=== PATIENT | female | born 1945 | race Caucasian/White ===

== ENCOUNTER 2023-11-04 01:37 | Emergency (ER) | payer MEDICARE, OTHER, SELFPAY ==
[2023-11-04 01:40] VITALS: BP 186/114
[2023-11-04 02:04] VITALS: BMI 39.1
--- NOTE | 2023-11-04 02:15 | ED.GENMED ---
History of Present Illness
<JOVAN Hollingsworth - Last Filed: 11/04/23 03:32>
General
Chief Complaint: Head Injury
Source: patient
Exam Limitations: none
Time Seen by Provider: 11/04/23 01:48
Nursing documentation reviewed up to this point in time: agreed with
Travel History
Have you had any contact with someone who has COVID-19?: No
Do you have any symptoms of coronavirus? Fever > 100 degrees, chills, cough, shortness of breath, sore throat, loss of taste or smell, muscle aches, or headache?: No
History of Present Illness
History of Present Illness:
This is a 78 year old female, with a PMH of Afib on eliquis, HTN, and GERD, who presents to the ED after a fall 45 mins ago. Pt states she was sleeping when she rolled off her bed and hit the back of her head on her side table. She denies any LOC.
She states she cut the back of her head and it has been bleeding. She has been applying pressure to it. She denies any GUERRERO, CP, SOB, nausea, vomiting, vision changes, abdominal pain, neck pain or palpitations.
Past History
<JOVAN Hollingsworth - Last Filed: 11/04/23 03:32>
Past History
ED Past Medical History: Arrthythmia (Paroxysmal atrial fibrillation with rapid ventricular response March 2021), Cancer (Uterine CA), HTN and Hypercholesterolemia
ED Past Surgical History: Gynecological (total Hysterectomy) and Other (barrets esophagus with surgery)
Social History
Tobacco: Former smoker
Alcohol: Occasional
Drug: None
Personal:
Living: with family
Review of Systems
<JOVAN Hollingsworth - Last Filed: 11/04/23 03:32>
Review of Systems
Allergies reviewed?: Yes
All Other Systems: ROS reviewed and negative except as documented in HPI and ROS
Constitutional: Reports no symptoms
EENT: Reports no symptoms
Respiratory: Reports no symptoms; Denies trouble breathing
Cardiac: Reports no symptoms; Denies chest pain or palpitations
ABD/GI: Reports no symptoms; Denies nausea or vomiting
: Reports no symptoms
Musculoskeletal: Reports no symptoms
Skin: Reports other (laceration on back of head)
Neurological: Reports no symptoms; Denies headache
Psychiatric: Reports no symptoms
Phy Exam
<JOVAN Hollingsworth - Last Filed: 11/04/23 03:32>
General Physical Exam
General Presentation: no apparent distress
General age: appears stated age
General Skin: warm and dry
General Habitus: normal
General Mental: alert
General Hydration: appears well hydrated
ENT Exam
ENT Exam: EOMI, neck supple, normocephalic and swallowing well
Cardiovascular Exam
Cardiovascular Exam: normal peripheral pulses and irregularly irregular
Pulmonary Exam
Pulmonary Exam: lungs clear, no respiratory distress, no rales, no crackles, no rhonchi, no wheezing and no cough
Gastrointestinal Exam
Gastrointestinal Exam: normal bowel sounds, non tender, soft and non distended
Neurological Exam
Neurological Exam: alert, oriented x3, no motor deficits and speech normal
Musculoskeletal Exam
Musculoskeletal Exam: full ROM, no edema and other (1.5 cm laceration along posterior scalp. No bony tenderness along head or cervical spine. Normal ROM. bleeding from laceration has stopped.)
Skin Exam
Skin Exam: normal color and warm/dry
Psychiatric Exam
Psychiatric Exam: normal mood/affect
Course
<ST EdelAK - Last Filed: 11/04/23 03:32>
Orders/Labs/Results
Orders:
Orders
11/04/23 01:44
Electrocardiogram (*1) Urgent
Reason for Study: Tachycardia
EKG- Treatment ONCE
11/04/23 01:51
CT Head W/o Iv Contrast Urgent
Comment:
Reason For Exam: fall, Posterior head strike on eliquis
11/04/23 03:14
Tetanus/Diphth/Acelpertussis [Adacel] 0.5 ml IM .ONCE ONE
Vital Signs
Initial and Last Documented VS:
Initial Vital Signs
Temp Pulse Resp BP Pulse Ox
98.1 F 154 24 186/114 97
11/04/23 01:40 11/04/23 01:40 11/04/23 01:40 11/04/23 01:40 11/04/23 01:40
Last Documented Vital Signs
Temp Pulse Resp BP Pulse Ox
98.1 F 88 20 186/114 96
11/04/23 01:40 11/04/23 03:00 11/04/23 03:00 11/04/23 01:40 11/04/23 03:00
<Rj Mari, - Last Filed: 11/04/23 03:16>
Orders/Labs/Results
Orders:
Orders
11/04/23 01:44
Electrocardiogram (*1) Urgent
Reason for Study: Tachycardia
EKG- Treatment ONCE
11/04/23 01:51
CT Head W/o Iv Contrast Urgent
Comment:
Reason For Exam: fall, Posterior head strike on eliquis
11/04/23 03:14
Tetanus/Diphth/Acelpertussis [Adacel] 0.5 ml IM .ONCE ONE
Vital Signs
Initial and Last Documented VS:
Initial Vital Signs
Temp Pulse Resp BP Pulse Ox
98.1 F 154 24 186/114 97
11/04/23 01:40 11/04/23 01:40 11/04/23 01:40 11/04/23 01:40 11/04/23 01:40
Last Documented Vital Signs
Temp Pulse Resp BP Pulse Ox
98.1 F 88 20 186/114 96
11/04/23 01:40 11/04/23 03:00 11/04/23 03:00 11/04/23 01:40 11/04/23 03:00
<DO Amber Lara Last Filed: 11/04/23 03:16>
Laceration Closure
Posterior Scalp:
Size of Wound in cm: 1.5
Description of Wound Edges: sharp and flap-well vascularized
Preparation: cleaned with saline
Revision/Debridement: routine- no revision
Wound exploration: explored to base- no FB
Type of Closure: single layer closure
Skin Closure Material: skin christina
Number of sutures: 5
<JOVAN Hollingsworth - Last Filed: 11/04/23 03:32>
*Critical Care Note
Total Time (30-74mins, 75-104mins- exclusive of procedures): Not Applicable
<DO Amber Lara Last Filed: 11/04/23 03:16>
Update Note
Update Note:
NONCONTRAST HEAD CT
IMPRESSION
No evidence of acute intracranial abnormality. No evidence of hemorrhage or mass.
Minor periventricular and subcortical regions of low attenuation likely representing chronic small vessel ischemic disease.
Ventricles and sulci are unremarkable.
Bones are unremarkable. Sinuses are unremarkable.
ED Attending Note
<JOVAN Hollingsworth - Last Filed: 11/04/23 03:32>
-
Portions of this chart may have been created with voice recognition software.� Occasional wrong word or��sound alike� substitutions may have occurred due to the inherent limitations of voice recognition software.
<DO Amber Lara Last Filed: 11/04/23 03:16>
ED Attending Note
Patient seen and examined by attending physician: Yes
I performed the substantive portion of visit, reviewed & personally made and approve the management plan that is documented in note by myself or NEGRITA.: Yes
ED Attending Note:
Pleasant 78-year-old female presents with head injury. She tripped and hit her dresser. Denies loss of consciousness. She did suffer a small laceration to the back of her head. Denies any other injuries at this time. Accompanied by her .
Patient was seen in conjunction with the PA student. I have reviewed and agree with the history and treatment plan presented. On my independent physical exam, patient is awake, alert, and oriented x3, no acute distress. There is a small 1-1/2 cm
long linear laceration to the posterior scalp for which we put 5 christina. Wound closed nicely without any bleeding. Patient tolerated procedure well without any immediate adverse effects. Christina to be removed in 10 days. Patient to get tetanus
updated. CT scan of the head is negative. Patient in no distress. Discussed return to ER instructions with patient and . They expressed understanding and have no questions at this time.
Discharge Plan
Departure
Patient Disposition: Home (Routine Discharge)
Date of Disposition: 11/04/23
Time of Disposition: 03:15
Patient with high blood pressure during this ER visit?: Yes
Condition: Good
Discharge Problem:
Laceration of scalp
Instructions: Laceration Repair With [place] (DC), Minor Head Injury (DC), BLOOD PRESSURE
Prescriptions:
No Action
sertraline 50 MG tablet
50 mg PO DAILY
omeprazole 40 MG capsule,delayed release(DR/EC)
40 mg PO DAILY
amlodipine 10 MG tablet
10 mg PO DAILY
metoprolol tartrate 50 MG tablet
50 mg PO BID Qty: 60 0RF
apixaban [Eliquis] 5 MG tablet
5 mg PO BID Qty: 60 0RF
lisinopril 20 MG tablet
20 mg PO DAILY Qty: 30 0RF
pravastatin 20 MG tablet
20 mg PO DAILY Qty: 0 0RF
Referrals:
Anupam Montenegro MD [Family Provider] -
Activity Restrictions/Additional Instructions:
It was a pleasure meeting you and taking part in your care. We hope for your continued healing and wellness.
Please read discharge instructions in their entirety. However, they are for general education and may not describe your exact diagnosis at discharge. Information on your ER visit and medical conditions were discussed with you along with appropriate
follow up information...
If indicated, please take your medications as instructed and indicated on discharge paperwork.
Please schedule a follow up appointment as directed. Call to schedule an appointment
Please return to the emergency department with ANY change in, persisting, or worsening of symptoms. If any of your symptoms do not improve, or persist, or become more severe within 6-12 hours, please return to the emergency department for further
care.
Please return to the emergency department if you develop a headache, neck pain/stiffness, fever greater than 100.4F, chest pain, shortness of breath, persistent nausea, vomiting, slurred speech, difficulty walking, numbness/tingling, weakness, signs
of infection or any other symptoms that are worrisome to you.
If you have any questions or concerns please do not hesitate to call the Hospital at
Interventions
Interventions:
*Risk Screen - Suicide Last Done: 11/04/23 01:40
*General Assessment Last Done: 11/04/23 01:59
*Neglect/Abuse Screening Last Done: 11/04/23 01:40
*Nursing Disposition Last Done: 11/04/23 03:21
ED- Neurological Assessment Last Done: 11/04/23 02:05
ED-Skin Assessment Last Done: 11/04/23 02:07
Discharge Date and Time
Discharge Date/Time: 11/04/23 03:23
[2023-11-04] MEDS: ADACEL 0.5 ML IM (03:16)
== END 2023-11-04 03:23 | disposition home or self-care (01) ==
LOC: EMR 01:37
PROVIDERS: EMERGENCY PHYSICIAN Student in an Organized Health Care Education/Training Program; FAMILY PHYSICIAN Family Medicine
DX: S01.01XA Laceration without foreign body of scalp, initial encounter (principal); W06.XXXA Fall from bed, initial encounter; I10 Essential (primary) hypertension; Z79.01 Long term (current) use of anticoagulants; Z23 Encounter for immunization; Z87.891 Personal history of nicotine dependence
CPT/HCPCS: 99284; 12001; 90471; 70450; 90715; 93005

== ENCOUNTER 2024-01-03 18:56 | Emergency (ER) | payer MEDICARE, OTHER, SELFPAY ==
[2024-01-03 19:06] VITALS: BP 155/106
[2024-01-03 19:42] VITALS: BMI 40.9
[2024-01-03] MEDS: NORCO 5/325 1 TABLET PO (21:51)
--- NOTE | 2024-01-03 23:57 | ED.MUSCINJ ---
HPI-Injury
General
Chief Complaint: Musculo-Skeletal Complaint
Source: patient
Exam Limitations: none
Time Seen by Provider: 01/03/24 21:24
Nursing documentation reviewed up to this point in time: agreed with
Travel History
Have you had any contact with someone who has COVID-19?: No
Do you have any symptoms of coronavirus? Fever > 100 degrees, chills, cough, shortness of breath, sore throat, loss of taste or smell, muscle aches, or headache?: No
History of Present Illness-Injury
Is this injury a work related problem?: No
Is pt an associate of [facility]?: No
Initial Injury comments:
Patient to ED with complaint of pain to base of right thumb. Symptoms started a few days ago. States she thinks she got finger caught in mattress while sleeping. Brought to ED by spouse for eval.
Past History
Past History
ED Past Medical History: Arrthythmia (Paroxysmal atrial fibrillation with rapid ventricular response March 2021), Cancer (Uterine CA), HTN and Hypercholesterolemia
ED Past Surgical History: Gynecological (total Hysterectomy) and Other (barrets esophagus with surgery)
Social History
Tobacco: Former smoker
Alcohol: Occasional
Drug: None
Personal:
Living: with family
Review of Systems
Review of Systems
Allergies reviewed?: Yes
All Other Systems: ROS reviewed and negative except as documented in HPI and ROS
Constitutional: Reports no symptoms
Musculoskeletal: Reports joint pain (pain to base of right thumb)
Skin: Reports no symptoms
Neurological: Reports no symptoms
Psychiatric: Reports no symptoms
Musculoskeletal Injury Exam
Musculoskeletal Injury Exam
Right Thumb:
Pain with Movement?: Moderate
Tender to palpation?: Moderate
Soft tissue swelling?: None
External deformity and angulation?: None
Joint effusion?: None
Contusion?: None
Hematoma-local bleeding into tissue?: None
Strain- Sprain- Tear (Connective tissue injury)?: Moderate
Crepitus with movement?: No
Joint instability?: No
Malalignment/deformity?: No
Range of motion: Limited
Distal skin color and temperature: normal-warm & good color
Capillary Refill: normal
Normal distal neurovascular exam?: Yes
Phy Exam
General Physical Exam
General Presentation: well appearing and no apparent distress
General age: appears stated age
General Skin: warm and dry
General Habitus: normal
General Mental: alert
Musculoskeletal Exam
Musculoskeletal Exam: neuro vasc intact
Skin Exam
Skin Exam: normal color, warm/dry and no rash
Psychiatric Exam
Psychiatric Exam: normal mood/affect
Injury Course
Orders/Labs/Results
Orders:
Orders
01/03/24 19:06
Wrist, Right 3 Views [CR Wrist - Right Min 3 Views] Urgent
Comment:
Reason For Exam: WOKE UP WITH PAIN
01/03/24 21:28
Hydrocodone 5/APAP 325 [[place] 5/325] 1 tablet PO NOW STA
*Radiology
Radiology exam reviewed: radiology read reviewed
*Pulse Oximetry
Patient hypoxic: no
*Critical Care Note
Total Time (30-74mins, 75-104mins- exclusive of procedures): Not Applicable
ED Attending Note
-
Portions of this chart may have been created with voice recognition software.� Occasional wrong word or��sound alike� substitutions may have occurred due to the inherent limitations of voice recognition software.
Discharge Plan
Departure
Patient Disposition: Home (Routine Discharge)
Date of Disposition: 01/03/24
Time of Disposition: 21:28
Patient with high blood pressure during this ER visit?: No
Condition: Good
Covid-19: Not Applicable
Discharge Problem:
Thumb pain
Instructions: Using Cold for Pain, Splint Care
Prescriptions:
New
hydrocodone-acetaminophen 5-325 mg tablet
1 tab PO Q4H PRN (Reason: Pain) Qty: 12 0RF
No Action
sertraline 50 MG tablet
50 mg PO DAILY
omeprazole 40 MG capsule,delayed release(DR/EC)
40 mg PO DAILY
amlodipine 10 MG tablet
10 mg PO DAILY
metoprolol tartrate 50 MG tablet
50 mg PO BID Qty: 60 0RF
apixaban [Eliquis] 5 MG tablet
5 mg PO BID Qty: 60 0RF
lisinopril 20 MG tablet
20 mg PO DAILY Qty: 30 0RF
pravastatin 20 MG tablet
20 mg PO DAILY Qty: 0 0RF
Referrals:
Anupam Montenegro MD [Family Provider] -
Ivan Goel MD [Active] - (Follow up if your symptoms are not improving over the next week.)
Interventions
Interventions:
*Risk Screen - Suicide Last Done: 01/03/24 19:03
*General Assessment Last Done: 01/03/24 19:41
*Neglect/Abuse Screening Last Done: 01/03/24 19:03
ED- Fall Risk Assessment Last Done: 01/03/24 19:39
*ED COVID-19 Vaccine History Last Done: 01/03/24 19:41
*Nursing Disposition Last Done: 01/03/24 21:54
ED-Musculoskeletal Assessment Last Done: 01/03/24 19:39
Discharge Date and Time
Discharge Date/Time: 01/03/24 21:54
Print Language: GEORGIAN
== END 2024-01-03 21:54 | disposition home or self-care (01) ==
LOC: EMR 18:56
PROVIDERS: EMERGENCY PHYSICIAN Emergency Medicine; FAMILY PHYSICIAN Family Medicine
DX: M79.644 Pain in right finger(s) (principal); I48.0 Paroxysmal atrial fibrillation; I10 Essential (primary) hypertension; E78.00 Pure hypercholesterolemia, unspecified; Z87.891 Personal history of nicotine dependence
CPT/HCPCS: 99283; 73110

== ENCOUNTER → 2024-07-26 08:09 | Outpatient (REF) | payer MEDICARE, OTHER, SELFPAY | LOC: RAD 08:09 | PROVIDERS: ATTENDING PHYSICIAN Obstetrics & Gynecology Gynecologic Oncology; FAMILY PHYSICIAN Internal Medicine | DX: C54.1 Malignant neoplasm of endometrium (principal); R41.3 Other amnesia; C79.82 Secondary malignant neoplasm of genital organs | CPT/HCPCS: 71260; 74177; Q9967 ==

== ENCOUNTER → 2024-09-07 18:56 | Outpatient (REF) | payer MEDICARE, OTHER, SELFPAY | LOC: MRI 3T 18:56 | PROVIDERS: ATTENDING PHYSICIAN Obstetrics & Gynecology Gynecologic Oncology; FAMILY PHYSICIAN Internal Medicine | DX: R41.3 Other amnesia (principal); C54.1 Malignant neoplasm of endometrium | CPT/HCPCS: 70553; A9575 ==

== ENCOUNTER 2025-03-21 15:53 | Emergency (ER) | payer MEDICARE, OTHER, SELFPAY ==
[2025-03-21] VITALS (8 sets, daily range): BP systolic 72–168; BP diastolic 28–99; BMI 36.2
[2025-03-21 16:26] LABS: Hematocrit 30.2 % (37.0-47.0); Hemoglobin 8.3 g/dL (12.0-16.0); Mean Corp Hgb Conc. 27.5 g/dL (33.0-37.0); Mean Corpuscular Volume 94.7 fL (81.0-99.0); Platelet Count 162 10^3/uL (130-400); Red Cell Dist. Width 19.8 % (11.5-14.5)
[2025-03-21 16:48] LABS: ALT (SGPT) 111 U/L (0-35); AST (SGOT) 154 U/L (14-36); Albumin 3.4 g/dl (3.5-5.0); Alkaline Phosphatase 96 U/L (38-126); Blood Urea Nitrogen 13 mg/dl (7-17); Calcium 8.9 mg/dl (8.4-10.2); Carbon Dioxide 19 mmol/L (22-30); Chloride 105 mmol/L (98-107); Estimated Creatinine Clearance 52 ml/min; Glucose 362 mg/dl (70-99); Potassium 3.5 mmol/L (3.5-5.1); Sodium 142 mmol/L (135-145); Total Protein 5.9 g/dl (6.3-8.2); eGFR 51.75
--- NOTE | 2025-03-21 16:59 | EDRN ---
15:07 EMS dispatched to family residence. Per EMS: Pt was a 79 y/o female who had been down for 8-10 mins prior to EMS arrival. EMS states that the PT sugar was 128, Heart rate was in the 120's when ROSC was achieved and PT intubated in the field.
(7.0 tube and 23 cm at the lip) EMS gave six (6) (1 mg Epinephrine) 15 ML of NSS in the field. Pt has a history of A-Fib, HTN, and cancer. There is an IO in the left shoulder.
Upon arrival to ER, a 20 g IV placed into the left wrist.
1604- Pulses were lost, CPR started
1606- Asystole on monitor 1 MG Epinephrine given, Bicarb was given and NSS fluids were started.
1610- ROSC achieved.
1610- Verbal order for Levophed 2 mcg/kg/min.
1614- Levophed 2 mcg/kg/min started. IV line in left wrist became positional, and ultimately removed. Two further IV lines were achieved on the right side of the body.
1616- Levophed 2 mcg/kg/min started in the right AC along with NSS Fluids.
1621- Pulses lost. CPR started.
1623- Asystole on the monitor, CPR continued, 1 MG of Epinephrine given.
1625- ROSC achieved.
1627- Pt family stated that if we were to loose a pulse again to not start compressions.
1630- Pulse became weak.
1636- Pt pronounced by Dr. Snell.
[2025-03-21 17:03] LABS: Troponin I 0.081 ng/ml
[2025-03-21 17:11] LABS: Nucleated Red Blood Cells % 2.5 %
--- NOTE | 2025-03-21 17:11 | ED.GENMED ---
History of Present Illness
General
Chief Complaint: CODE
Source: records, family and ambulance crew
Exam Limitations: clinical condition
Time Seen by Provider: 03/21/25 16:04
History of Present Illness
History of Present Illness:
This patient is a 79-year-old female who reportedly told her she did not feel well and then collapsed. Medics were called. Patient had been 'down' and unresponsive for 8 to 10 minutes before their arrival. Patient was noted to be in
asystole. Patient was intubated, and CPR, ACLS initiated. She had ROsc initially, then lost pulses again, then upon presentation to the ER had ROSC. Accu-Chek was within normal limits. EKG by EMS not consistent with NSTEMI. Medics gave
approximately 1500 mL of normal saline and 6 doses of epinephrine.
Past History
Past History
ED Past Medical History: Arrthythmia (Paroxysmal atrial fibrillation with rapid ventricular response March 2021), Cancer (Uterine CA), HTN and Hypercholesterolemia
ED Past Surgical History: Gynecological (total Hysterectomy) and Other (barrets esophagus with surgery)
Social History
Tobacco: Former smoker
Alcohol: Occasional
Drug: None
Personal:
Living: with family
Phy Exam
Physical Exam
Physical Exam:
CODE EXAM:
VITAL SIGNS: No palpable blood pressure, no pulses, no respiration.
GENERAL EXAM: Mottled
EYES: Pupils fixed
ENT: Patient intubated
NECK: No venous distention
RESPIRATORY: Equal breath sounds with diffuse wheezing noted
CARDIAC: Absent heart sounds
VASCULAR: Absent pulses
ABDOMEN: Soft no masses
GUAIAC: Not done
MUSCULOSKELETAL: Unable to evaluate strength
EXTREMITIES: No edema or contractures
SKIN: No rash
PSYCH: Mood, affect unable to evaluate
Course
Orders/Labs/Results
Orders:
Orders
03/21/25 15:58
Electrocardiogram (*1) Urgent
Reason for Study: Other
Other Reason for Exam: Respiratory Distress
Cardiac Monitoring- Treatment ONCE
EKG- Treatment ONCE
IV Insert/Care/Rem.- Treatment PRN
O2 Therapy [RESP] Urgent
Titrate/Wean O2 to maintain O2 sat greater than (%): 93
Special Instructions: TO MAINTAIN CONTINUOUS O2 SATS >/= 93%
Pulse Ox/cont/shift [RESP] Urgent
Quantity: 1
Special Instructions: continuous pulse ox
03/21/25 16:03
Chest X-ray Portable [CR Chest Portable - 1 View] Stat
Comment:
Reason For Exam: CODE
Reason Study Needs to be Portable: Unable to Transport
03/21/25 16:14
Complete Blood Count/With Diff Urgent
Comprehensive Metabolic Panel Urgent
NT-proBNP Urgent
Troponin I Urgent
03/21/25 16:17
Albuterol Nebs [Ventolin Nebules] 2.5 mg .ROUTE .STK-MED ONE
Abnormal Lab Results
03/21/25
16:14
RBC 3.19 L 10^6/uL
(4.20-5.40)
Hgb 8.3 L g/dL
(12.0-16.0)
Hct 30.2 L %
(37.0-47.0)
MCH 26.0 L pg
(27.0-31.0)
MCHC 27.5 L g/dL
(33.0-37.0)
RDW 19.8 H %
(11.5-14.5)
Abs Immat Gran (auto) 0.4 H 10^3/uL
(0-0.05)
Absolute Neuts (auto) 1.1 L 10^3/uL
(1.4-6.5)
Immature Gran % 7.2 H %
(0-0.5)
Neutrophils % 23.3 L %
(42.2-75.2)
Lymphocytes % 65.0 H %
(20.5-51.1)
Carbon Dioxide 19 L mmol/L
(22-30)
Creatinine 1.1 H mg/dL
(0.6-1.0)
Glucose 362 H mg/dl
(70-99)
AST 154 H U/L
(14-36)
ALT 111 H U/L
(0-35)
Troponin I 0.081 H* ng/ml
Total Protein 5.9 L g/dl
(6.3-8.2)
Albumin 3.4 L g/dl
(3.5-5.0)
03/21/25 16:14
03/21/25 16:14
Vital Signs
Initial and Last Documented VS:
Initial Vital Signs
BP
117/90
03/21/25 15:57
Last Documented Vital Signs
Pulse Resp BP
145 24 84/38
03/21/25 16:30 03/21/25 16:30 03/21/25 16:30
Procedures
Central Line
Left Femoral:
Indication for procedure:: access, cooling
Procedure completed by: Dr hannah Snell
Consent form signed: No
If no, reason: Emergency procedure
Anesthesia: 1% Lidocaine with Epi
Central line lumen: triple
Number of attempts: 2
Central line complications: none
Sterile dressing applied?: No
*Pulse Oximetry
Patient hypoxic: yes
*Critical Care Note
Total Time (30-74mins, 75-104mins- exclusive of procedures): 45
Update Note
Update Note:
Patient presents to the Emergency Department with cardiac arrest
Number and Complexity of Problems Addressed at the Encounter
� Chronic conditions affecting care:
� Acute Exacerbation and/or Progression of Chronic Illness:
� Differential Diagnosis includes: But not limited to PE, heart failure, ACS, pneumothorax, etc. etc. etc.
Amount and/or Complexity of Data to be Reviewed and Analyzed
� I performed an independent evaluation of and my interpretation is:
EKG: Read by me, bradycardic, idioventricular rhythm with widened QRS, no ST ANAHI noted
CT:
Xrays: Portable chest x-ray read by me, no pneumothorax noted, no effusion, no massive cardiomegaly noted
Laboratory Studies:
Other:
� Review of other/old records reveals: Prior history noted in prior medical records
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 She is questionably compliant with
her medications.
� Prescriptions/Medications Considered but not given:
� Further testing considered but not performed:
Risk of Complications and/or Morbidity or Mortality of Patient Management
� Social determinants of health affecting care:
� Discussion with other providers (PCP, Hospitalists, Consultants, etc):
� Escalation of care including admission/observation vs risk of discharge considered: Extensive resuscitative efforts made with patient, she did temporarily regain pulses a few times here in the emergency department but then
shortly after lost them. I did place a femoral line in anticipation of cooling for ROSC however patient did not recover. I then met patient's family in family room, describing how patient had been without meaningful brain perfusion for some time,
prognosis is poor, they agreed and further efforts were terminated. Time of 4:36 PM. Case discussed with upsetter helper, clinical details provided, patient is not considered a upsetter helper's case. Case discussed with Dr. Arnold Delgado via [place] text
informing him of patient's outcome today.
ED Attending Note
-
Portions of this chart may have been created with voice recognition software.� Occasional wrong word or��sound alike� substitutions may have occurred due to the inherent limitations of voice recognition software.
Discharge Plan
Departure
Patient Disposition:
Date of Disposition: 03/21/25
Time of Disposition: 16:36
Condition: Critical
Discharge Problem:
Cardiac arrest
Prescriptions:
No Action
sertraline 50 MG tablet
50 mg PO DAILY
omeprazole 40 MG capsule,delayed release(DR/EC)
40 mg PO DAILY
amlodipine 10 MG tablet
10 mg PO DAILY
metoprolol tartrate 50 MG tablet
50 mg PO BID Qty: 60 0RF
apixaban [Eliquis] 5 MG tablet
5 mg PO BID Qty: 60 0RF
lisinopril 20 MG tablet
20 mg PO DAILY Qty: 30 0RF
pravastatin 20 MG tablet
20 mg PO DAILY Qty: 0 0RF
hydrocodone-acetaminophen 5-325 mg tablet
1 tab PO Q4H PRN (Reason: Pain) Qty: 12 0RF
Referrals:
Arnold Rodríguez DO [Family Provider, Internal Medicine]
Interventions
Interventions:
*Risk Screen - Suicide Last Done: 03/21/25 18:21
*General Assessment Last Done: 03/21/25 18:21
*Neglect/Abuse Screening Last Done: 03/21/25 18:21
*ED- Fall Risk Assessment Last Done: 03/21/25 18:21
*ED COVID-19 Vaccine History Last Done: 03/21/25 18:21
*Nursing Disposition Last Done: 03/21/25 18:21
ED- Cardiac Assessment Last Done: 03/21/25 16:18
ED- Pulmonary Assessment Last Done: 03/21/25 16:18
Discharge Date and Time
Discharge Date/Time: 03/21/25 16:36
Print Language: PASHTO
[2025-03-21 17:15] LABS: Anisocytosis 1+; Hypochromasia 1+; Macrocytosis 1+; Normal RBC Morphology No
[2025-03-21 17:16] LABS: Microcytosis 1+; Ovalocytes Slight
== END 2025-03-21 16:36 | disposition expired ==
LOC: EMR 15:53
PROVIDERS: Anesthesiology Pain Medicine; EMERGENCY PHYSICIAN Emergency Medicine; FAMILY PHYSICIAN Internal Medicine
DX: I46.9 Cardiac arrest, cause unspecified (principal); I48.0 Paroxysmal atrial fibrillation; I10 Essential (primary) hypertension; E78.00 Pure hypercholesterolemia, unspecified; Z85.42 Personal history of malignant neoplasm of other parts of uterus; Z87.891 Personal history of nicotine dependence; Z90.710 Acquired absence of both cervix and uterus
CPT/HCPCS: 99291; 71045; 80053; 83880; 84484; 85025; 92950; 93005